=== PATIENT | male | born 1970 | race Caucasian/White ===

== ENCOUNTER 2024-06-26 11:05 | Outpatient (AMB) | payer OTHER, SELFPAY ==
--- NOTE | 2024-06-26 11:09 | MHC.PC.OV ---
Vital Signs 06/26/24 11:16 06/26/24 11:36 Height 5 ft 10 in Weight 244 lb 2 oz BMI 35.0 BP 133/82 128/80 Blood Pressure Location Rt brachial Lt brachial Position Sitting Sitting Respiration 16 Pulse 110 H 92 Pulse Source Pulse Oximeter Auscultation Temp 98.8 F Temp Source Oral Pulse Oximetry (%) 96 Oxygen Delivery Method Room Air Intake Visit Reasons: [employer] // PE Intake Note: patient here for new patient visit Manager Of Case Management Required: No Allergies No Known Allergies Allergy (Verified 06/26/24 11:29) Medication List - Last Reconciled 06/26/24 by Thor Lovett CNP chlorthalidone 25 mg PO QAM escitalopram oxalate mg PO DAILY trazodone mg PO BEDTIME Tobacco use date assessed: 06/26/24 Dental Screening Dental Screen Date: 06/26/24 Did you have a dental visit in the last 12 months?: Yes Did you have a dental problem in the last 6 months where you did not have access to dental care?: No Was dental information given to patient?: Patient has dentist HPI HPI Comments History of Present Illness Details 53-year-old male presents to establish care Prior PCP? - [facility], [place], [place] Last office visit/CPE/labs - 2 years ago Acute issue(s) - Sleep Apnea: He has not used his CPAP in over a year and believes his CPAP is now updated and therefore needs a new one. He has not had sleep studies in over 5 years. - HTN: On chlorthalidone 25 mg daily. - Anxiety and depression: On escitalopram 10 mg daily. Controlled symptoms. Not followed by a therapist or psychiatrist - Insomnia: On trazodone 100 mg at bedtime. Past Medical History - Hypertension - Depression - Anxiety - Insomnia - Sleep apnea Surgical History - Umbilical hernia repair - Tonsillectomy bilaterall - Uvulectomy Family History - Dad: Alcohol abuse, cardiovascular disease, hyperlipidemia - Mom: Alcohol abuse, cardiovascular disease, hypertension, hyperlipidemia, mental illness - MGM: Cardiovascular disease - PGF: Alcohol abuse Social History - Nonsmoker. Does not vape. Drinks 1-2 whisky 3-4 days weekly. Smoke 1/2 joint cannabis 3-4 times nightly - Has been making healthy dietary choices. Walks twice weekly. He has difficulty falling asleep or maintaining sleep; however, he generally sleeps well on trazadone Health maintenance - Last eye exam was 2 years ago. Referred to ophthalmology for routine eye care - Last dental visit was about a month ago. Encouraged to get dental care every 6-12 months - Last tetanus vaccine was within the last 5 years. Will obtain and review his record and updated as needed - Received 1 of 2 shingles vaccine last month. Encouraged to get second shingles vaccine. He may get the vaccine from the local pharmacy - He has not been vaccinated for pneumonia. Pneumonia vaccine recommended. He may get the vaccine from the local pharmacy - Up-to-date on the flu vaccine - He has never had a colonoscopy. He had Cologuard test 3 years ago: normal. Referred to [facility] gastroenterology for a colonoscopy [facility] Medical History (Updated 06/26/24 @ 12:11 by Thor Lovett CNP) Depression High blood pressure Surgical History (Updated 06/27/24 @ 15:29 by Thor Lovett CNP) History of umbilical hernia repair History of tonsillectomy History of uvulectomy Family History (Updated 06/26/24 @ 11:28 by Milla Pritchard) Brother Alcohol abuse Diabetes Colorectal cancer FH: mental illness Mother FH: mental illness High blood pressure High cholesterol Cardiovascular disease Alcohol abuse Father High cholesterol Cardiovascular disease Alcohol abuse Maternal Grandmother Cardiovascular disease Paternal Aunt No problems noted. 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 1. Little interest or pleasure in doing things: several days 2. Feeling down, depressed, or hopeless: not at all 3. Trouble falling or staying asleep, or sleeping too much: more than half the days 4. Feeling tired or having little energy: more than half the days 5. Poor appetite or overeating: several days 6. Feeling bad about yourself - or that you are a failure or have let yourself or your family down: not at all 7. Trouble concentrating on things, such as reading the newspaper or watching television: several days 8. Moving or speaking so slowly that other people could have noticed. Or the opposite - being so fidgety or restless that you have been moving around a lot more than usual: not at all 9. Thoughts that you would be better off or of hurting yourself in some way: not at all Total score: 7 Depression Screening Interpretation: Positive Depression Screening Follow-up: Existing condition and In treatment Depression Screening Done: Yes [id number] - PHQ-9 Billing: Yes Source: Developed by Drs. Maximiliano Rivera, Anne Omalley, Freddie Broussard and colleagues, with an educational jocelin from [employer]. Thrive Questionnaire Date Thrive assessed: 06/26/24 I am a: Patient What is your living situation today?: I have a steady place to live Within the past 12 months, did the food you bought not last and you didn't have the money to get more?: Never true Within the past 12 months, did you worry whether your food would run out before you got money to buy more?: Never true Do you have trouble paying for medicines?: No Do you have trouble getting transportation to medical appointments?: No Do you have trouble paying your heating and electricity bill?: No Do you have trouble taking care of your child, family member or friend?: No Do you have trouble with day-to-day activities such as bathing, preparing meals, shopping, managing finances, etc.?: No Are you currently unemployed and looking for a job?: No Are you interested in more education?: Yes Please select the resources that you would like help with: None Currently or been in a relationship where the following occur: No concerns reported THRIVE Score: 0 AUDIT C Alcohol Use Questionnaire (AUDIT-C) 1. How often do you have a drink containing alcohol?: 2-3 times a week 2. How many drinks containing alcohol do you have on a typical day when you are drinking?: 1 or 2 3. How often do you have six or more drinks on one occasion?: Never Total Score: 3 Score Reviewed/Action Taken: Yes KATERYNA-7 AMB Questionnaire KATERYNA-7 Date KATERYNA - 7 assessed: 06/26/24 Feeling nervous, anxious, or on edge: 1 = Several days Not being able to stop or control worryin = Not at all Worrying too much about different things: 1 = Several days Trouble relaxin = Not at all Being so restless that it is hard to sit still: 1 = Several days Becoming easily annoyed or irritable: 1 = Several days Feeling afraid as if something awful might happen: 0 = Not at all Total KATERYNA-7 score (0-4 normal; 5-9 mild; 10-14 moderate; 15-21 severe): 4 Source: Developed by Drs. Maximiliano Rivera, Anne Omalley, Freddie Broussard and colleagues, with an educational jocelin from [employer]. KATERYNA-7 Assessment Billing KATERYNA-7 Assessment Tool: KATERYNA-7 Assessment 67414 Review of Systems Const Details: Denies chills, Denies fatigue, Denies fever(s), Denies headache(s) and Denies weakness HEENT Denies change in vision, Denies dizziness, Denies headache(s), Denies hearing loss, Denies nasal congestion, Denies sinus pain, Denies sinus pressure and Denies sore throat Card Denies chest pain, Denies lightheadedness, Denies dyspnea and Denies other (palpitations) Resp Denies cough, Denies dyspnea and Denies wheezing GI Denies abdominal pain, Denies melena, Denies hematochezia, Denies change in bowel habits, Denies dyspepsia and Denies nausea Denies hematuria and Denies dysuria Musc Denies abnormal gait, Denies myalgias, Denies arthralgias, Denies numbness and Denies tingling Skin/Breast Denies rash, Denies unusual bruising and Denies wounds Neuro Denies abnormal gait, Denies dizziness, Denies headache(s), Denies memory loss, Denies numbness, Denies Sensory deficit (Neuro), Denies tingling and Denies weakness Psych Denies anxiety, Denies depression and Denies memory loss Endo Denies cold intolerance, Denies fatigue, Denies heat intolerance, Denies polydipsia and Denies polyuria Nathanael/Lymph Denies easy bleeding and Denies easy bruising Aller/Immun Denies wheezing Physical exam (Primary Care) Vital Signs: Last Vital Signs Temp 98.8 F 06/26/24 11:16 Pulse 92 06/26/24 11:36 Resp 16 06/26/24 11:16 BP 128/80 06/26/24 11:36 Pulse Ox 96 06/26/24 11:16 Oxygen Delivery Method Room Air 06/26/24 11:16 BMI result Body Mass Index 35.0 Tobacco/Smoking Status: Tobacco use Status Tobacco use date assessed 06/26/24 06/26/24 11:16 Patient Tobacco Use Status Never used Tobacco 06/26/24 11:21 e-Cigarette/Vaping Use Never Used 06/26/24 11:21 PHQ-9: PHQ-9 Score PHQ-9: Total score 7 06/27/24 15:19 Depression Screening Interpretation: Positive Depression Screening Follow-up: Existing condition and In treatment Thrive Assessment: Date of Thrive Assessment Date Thrive assessed 06/26/24 06/26/24 11:12 Currently or been in a relationship where the following occur: No concerns reported Const Other: General: no acute distress, well developed, alert and awake Nutritional Appearance: well nourished Orientation/consciousness: patient oriented x3 HENMT Head: Yes normocephalic and Yes atraumatic Ears: hearing grossly normal bilaterally and TM's normal bilaterally General nose exam: Normal external nose present and Normal nares present Mouth: Normal oral and palatal mucosa present and moist mucous membranes Teeth and gingiva: dentition normal Throat: Yes oropharynx normal (tonsillectomy, uvulectomy) Eyes Pupils: Equal, round and reactive pupils present and Pupil accommodation reflex normal EOM: EOMs intact bilaterally Neck Neck: Yes normal visual inspection, Yes no lymphadenopathy and Yes trachea midline Thyroid: Thyroid normal Carotids: no bruits Lymphatic: no lymphadenopathy noted Chest Chest palpation & inspection: normal inspection of the chest Resp Effort & Inspection: normal respiratory effort Auscultation: clear to auscultation bilaterally Cardio Rate: regular rate Rhythm: regular rhythm Heart sounds: S1 normal heart sound present, S2 normal heart sound present, no gallops, no murmurs and no rubs Bruits: no abdominal aortic bruits and no carotid bruits GI Palpation (GI): No Abdominal aortic bruit present, Soft to palpation, nontender, No hepatosplenomegaly present and No Rebound tenderness present Auscultation: normal bowel sounds General: Yes no CVA tenderness Back/Spine/Pelvis Back: no CVA tenderness Cervical Spine: cervical ROM normal and No Cervical spine tenderness Thoracic/Lumbar Spine: thoraco-lumbar ROM normal, No pain with thoraco-lumbar ROM, No thoracic spinal tenderness and No lumbar spinal tenderness Skin General: warm and dry. Normal skin color. Normal skin turgor Lesions: no lesions Rashes: no rashes Trauma: no lacerations or abrasions Wounds: no wounds Nails: normal Neuro General: patient oriented x3, gait normal and CN's II-XI intact bilaterally Cranial nerves: Yes Equal, round and reactive pupils present Cognition (Neuro): normal cognition Gait exam (Neuro): Normal gait present Motor exam (neuro): 5/5 motor strength present throughout Sensory Exam: No Sensory deficit (Neuro) Deep tendon reflexes (DTR's): Right patellar reflex intensity grade: 2+ and Left patellar reflex intensity grade: 2+ Extrem General: Yes normal to inspection, No edema and No calf tenderness Psych Appearance: grossly normal Affect: normal affect Attitude: cooperative Thought process: Normal thought process present Coding Level of Care Code New Pt Level 3 (37919) New Pt Prev Care 40-64y(73646) Diagnoses Normal physical examination, routine Z00.00 High blood pressure I10 Anxiety and depression F41.9; F32.A Colon cancer screening Z12.11 Screening PSA (prostate specific antigen) Z12.5 Eye exam, routine Z01.00 Morbid obesity with BMI of 40.0-44.9, adult E66.01; Z68.41 Sleep apnea G47.30 Insomnia G47.00 Laboratory tests ordered as part of a complete physical exam (CPE) Z00.00 Additional Codes KATERYNA-7 Assessment Billing - KATERYNA-7 Assessment Tool: KATERYNA-7 Assessment 57146 ([id number]) PHQ-9 - 05700 - PHQ-9 Billing: Yes ([id number]) Assessment & Plan Assessment & Plan (1) Normal physical examination, routine: Code(s): Z00.00 - Encounter for general adult medical examination without abnormal findings Category: Medical Plan: No significant functional limitation noted. Continue current treatment management. Perform lab work and follow-up for telehealth visit in 2-3 weeks for labs review. Return sooner with symptoms or concerns. Verbalized understanding and agreed with treatment plan. (2) High blood pressure: Code(s): I10 - Essential (primary) hypertension Category: Medical Plan: Resting blood pressure is 128/80, controlled. Continue to take chlorthalidone as prescribed. Low-sodium diet encouraged. Will continue to monitor. Verbalized understanding and agreed with treatment plan. (3) Anxiety and depression: Code(s): F41.9 - Anxiety disorder, unspecified; F32.A - Depression, unspecified Category: Medical Plan: Controlled anxiety and depressive symptoms. Continue to take escitalopram as prescribed. Routine exercise encouraged. Follow-up with worsening or new symptoms. Verbalized understanding and agreed with treatment plan. (4) Colon cancer screening: Code(s): Z12.11 - Encounter for screening for malignant neoplasm of colon Category: Medical Plan: He has never had a colonoscopy. He had Cologuard test 3 years ago: normal. Referred to [facility] gastroenterology for a colonoscopy. (5) Screening PSA (prostate specific antigen): Code(s): Z12.5 - Encounter for screening for malignant neoplasm of prostate Category: Medical Plan: PSA lab ordered. (6) Eye exam, routine: Code(s): Z01.00 - Encounter for examination of eyes and vision without abnormal findings Category: Medical Plan: Last eye exam was 2 years ago. Referred to ophthalmology for routine eye care. (7) Morbid obesity with BMI of 40.0-44.9, adult: Code(s): E66.01 - Morbid (severe) obesity due to excess calories; Z68.41 - Body mass index [BMI] 40.0-44.9, adult Category: Medical Plan: He currently weighs 294 lb, BMI is 42.2. He has been making healthy dietary choices and exercising routinely which I encouraged. Declines referral to a marine radio installer and servicer or weight management clinic and notes that he will continue with healthy lifestyle changes. Healthy diet and routine exercise encouraged. Follow-up as needed. Verbalized understanding and agreed with treatment plan. (8) Sleep apnea: Code(s): G47.30 - Sleep apnea, unspecified Category: Medical Plan: Sleep apnea on CPAP. He has not used his CPAP in over a year and believes his CPAP is now updated and therefore needs a new one. He has not had sleep studies in over 5 years. Referred to sleep medicine for sleep studies and CPAP follow-up. (9) Insomnia: Code(s): G47.00 - Insomnia, unspecified Category: Medical Plan: He has difficulty falling asleep or maintaining sleep; however, he generally sleeps well on trazadone. Continue to take trazodone as prescribed. Routine exercise encouraged. Referred to sleep medicine for sleep study and CPAP follow-up. (10) Laboratory tests ordered as part of a complete physical exam (CPE): Code(s): Z00.00 - Encounter for general adult medical examination without abnormal findings Category: Medical Plan: Fasting labs ordered as part of a complete physical exam. Advised to fast for at least 10 hours before getting labs drawn. May drink water Verbalized understanding and agreed with treatment plan. Orders: Orders Complete Blood Count Auto Diff 06/26/24 Z00.00 - Encounter for general adult medical examination without abnormal findings Vitamin D 25-OH Total 06/26/24 Z00.00 - Encounter for general adult medical examination without abnormal findings PSA, Ultra Sensitive 06/26/24 Z12.5 - Encounter for screening for malignant neoplasm of prostate Comprehensive [place]. Panel Fast 06/26/24 Z00.00 - Encounter for general adult medical examination without abnormal findings Lipid Panel 06/26/24 Z00.00 - Encounter for general adult medical examination without abnormal findings TSH reflex Free T4 06/26/24 Z00.00 - Encounter for general adult medical examination without abnormal findings UA CC w/rflx Micro + Cult 06/26/24 Z00.00 - Encounter for general adult medical examination without abnormal findings Microalbumin, Random (w Creat) 06/26/24 Z00.00 - Encounter for general adult medical examination without abnormal findings Referrals Sleep Medicine Referral G47.30 - Sleep apnea, unspecified Ophthalmology Referral Z01.00 - Encounter for examination of eyes and vision without abnormal findings Gastroenterology Referral Z12.11 - Encounter for screening for malignant neoplasm of colon
[2024-06-26 11:16] VITALS: BP 133/82; PULSE 110; RESP 16; TEMP 37.1; O2SAT 96; BMI 35.0
[2024-06-26 11:36] VITALS: BP 128/80; PULSE 92
== END 2024-06-26 12:03 | disposition home or self-care (01) ==
PROVIDERS: PCP Nurse Practitioner Family; Visit Provider Nurse Practitioner Family
DX: Z00.00 Encounter for general adult medical examination without abnormal findings (principal); I10 Essential (primary) hypertension; E66.01 Morbid (severe) obesity due to excess calories; Z68.41 Body mass index [BMI] 40.0-44.9, adult; F41.9 Anxiety disorder, unspecified; F32.A Depression, unspecified; Z12.11 Encounter for screening for malignant neoplasm of colon; Z12.5 Encounter for screening for malignant neoplasm of prostate; G47.30 Sleep apnea, unspecified; G47.00 Insomnia, unspecified

== ENCOUNTER → 2024-06-26 11:05 | Outpatient (BNVA) | payer OTHER, SELFPAY | PROVIDERS: PCP Nurse Practitioner Family; Visit Provider Nurse Practitioner Family | DX: Z00.00 Encounter for general adult medical examination without abnormal findings (principal); I10 Essential (primary) hypertension; F41.9 Anxiety disorder, unspecified; F32.A Depression, unspecified; E66.01 Morbid (severe) obesity due to excess calories; Z68.41 Body mass index [BMI] 40.0-44.9, adult; G47.30 Sleep apnea, unspecified; G47.00 Insomnia, unspecified; Z79.899 Other long term (current) drug therapy; Z99.89 Dependence on other enabling machines and devices | CPT/HCPCS: 96127 ==

== ENCOUNTER 2024-07-09 07:23 | Outpatient (REF) | payer OTHER, SELFPAY ==
[2024-07-09 07:36] LABS: MANUAL DIFF FLAG NO
[2024-07-09 08:02] LABS: Basophils Absolute Auto 0.1 X10*3/uL (0.0-0.2); Basophils Percent Auto 0.7 % (0-2); Eosinophils Absolute Auto 0.1 X10*3/uL (0.0-0.4); Eosinophils Percent Auto 1.6 % (0-4); Hematocrit 50.7 % (42.0-52.0); Hemoglobin 17.9 g/dl (14.0-18.0); Imm Gran Abs Auto 0.02 X10*3/uL (0.00-0.03); Imm Gran Pct Auto 0.3 % (0.0-0.4); Lymphocytes Absolute Auto 1.7 X10*3/uL (1.2-4.9); Lymphocytes Percent Auto 22.6 % (20-40); Mean Corpuscular HGB Conc 35.3 g/dl (31.0-36.0); Mean Corpuscular Hemoglobin 32.3 pg (27.0-33.0); Mean Corpuscular Volume 91.4 fL (80.0-98.0); Mean Platelet Volume 9.7 fL (9.4-12.4); Monocytes Absolute Auto 0.8 X10*3/uL (0.1-1.2); Monocytes Percent Auto 10.8 % (2-11); Neutrophils Absolute Auto 4.8 x10*3/uL (2.0-8.3); Platelet Count 197 X10*3/uL (160-400); Red Blood Count 5.55 X10*6/uL (4.60-5.80); Red Cell Distribution Width 11.7 % (11.0-16.0); White Blood Count 7.5 X10*3/uL (4.8-10.8)
[2024-07-09 08:18] LABS: Alanine Aminotransferase 35 U/L (0-40); Albumin Level 4.2 g/dL (3.5-5.0); Alkaline Phosphatase 73 U/L (39-117); Anion Gap 15 (12-20); Aspartate Amino Transferase 30 U/L (5-37); Bilirubin Total 0.8 mg/dL (0.0-1.0); Blood Urea Nitrogen 15 mg/dL (9-16); Calcium 9.5 mg/dL (8.4-10.2); Carbon Dioxide 29 mmol/L (22-29); Chloride 102 mmol/L (96-108); Cholesterol 193 mg/dL (<200); Estimated Glomerular Filt Rate > 60; Glucose Fasting 120 mg/dL (60-99); HDL Cholesterol 37 mg/dL (>40); LDL Cholesterol Calculated 90 mg/dL (<100); Potassium 3.7 mmol/L (3.3-5.1); Sodium 142 mmol/L (135-145); Triglycerides 331 mg/dL (<150)
[2024-07-09 08:42] LABS: TSH reflex Free T4 1.16 uIU/mL (0.32-4.0); Vitamin D 25-OH Total 33.4 ng/mL (>30)
[2024-07-09 08:45] LABS: Appearance Urine Clear; Color Urine Yellow; Glucose Urine UA Negative (Negative); Leukocyte Esterase Urine Negative (Negative); Nitrite Urine Negative (Negative); PH 6.5 (5.0-9.0); Urine Blood Negative (Negative); Urine Ketones Negative (Negative); Urine Protein Negative (Neg-Trace)
[2024-07-09 09:43] LABS: Microalbum/Creatinine Ratio Ur 22.1 ug/mg cr (<30)
[2024-07-13 16:58] LABS: PSA, Ultra Sensitive 2.64 ng/mL
== END 2024-07-09 07:24 | disposition home or self-care (01) ==
LOC: HO.LAB 07:23
PROVIDERS: PCP Nurse Practitioner Family; Visit Provider Nurse Practitioner Family
DX: Z00.00 Encounter for general adult medical examination without abnormal findings (principal); Z12.5 Encounter for screening for malignant neoplasm of prostate; Z13.6 Encounter for screening for cardiovascular disorders
CPT/HCPCS: 36415; 80053; 80061; 81003; 82043; 82306; 82570; 84153; 84443; 85025

== ENCOUNTER 2024-07-18 12:43 | Outpatient (AMB) | payer OTHER, SELFPAY ==
--- NOTE | 2024-07-18 12:39 | MHC.PC.OV ---
Intake Visit Reasons: Telehealth 2-3 wks labs review Intake Note: patient here for 2-3 follow up telehealth for lab review Group Therapist Required: No Allergies No Known Allergies Allergy (Verified 07/18/24 12:39) Tobacco use date assessed: 07/18/24 Dental Screening Dental Screen Date: 06/26/24 Did you have a dental visit in the last 12 months?: Yes Did you have a dental problem in the last 6 months where you did not have access to dental care?: No Was dental information given to patient?: Patient has dentist HPI HPI Comments History of Present Illness Details 53-year-old male presents for telehealth visit for review of recent lab results. He admits to taking his medications as prescribed without adverse reactions. He offers no complaints and denies acute symptoms at this time. [facility] Medical History (Updated 07/18/24 @ 13:28 by Thor Lovett CNP) Depression High blood pressure Surgical History (Updated 06/27/24 @ 15:29 by Thor Lovett CNP) History of umbilical hernia repair History of tonsillectomy History of uvulectomy Family History (Updated 06/26/24 @ 11:28 by Milla Pritchard [place]) Brother Alcohol abuse Diabetes Colorectal cancer FH: mental illness Mother FH: mental illness High blood pressure High cholesterol Cardiovascular disease Alcohol abuse Father High cholesterol Cardiovascular disease Alcohol abuse Maternal Grandmother Cardiovascular disease Paternal Aunt No problems noted. 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 Current occupational exposures/hazards: No Cognitive needs: No Hearing needs: No Vision needs: Yes Questionnaire Thrive Questionnaire Date Thrive assessed: 06/26/24 I am a: Patient What is your living situation today?: I have a steady place to live Within the past 12 months, did the food you bought not last and you didn't have the money to get more?: Never true Within the past 12 months, did you worry whether your food would run out before you got money to buy more?: Never true Do you have trouble paying for medicines?: No Do you have trouble getting transportation to medical appointments?: No Do you have trouble paying your heating and electricity bill?: No Do you have trouble taking care of your child, family member or friend?: No Do you have trouble with day-to-day activities such as bathing, preparing meals, shopping, managing finances, etc.?: No Are you currently unemployed and looking for a job?: No Are you interested in more education?: Yes Please select the resources that you would like help with: None Currently or been in a relationship where the following occur: No concerns reported THRIVE Score: 0 KATERYNA-7 AMB Questionnaire KATERYNA-7 Date KATERYNA - 7 assessed: 06/26/24 Source: Developed by Drs. Maximiliano Rivera, Anne Omalley, Freddie Broussard and colleagues, with an educational jocelin from [email or web address]. Review of Systems Const Details: Denies chills, Denies fatigue, Denies fever(s), Denies headache(s) and Denies weakness Cardiac Denies chest pain, Denies claudication, Denies leg edema, Denies lightheadedness, Denies palpitations, Denies dyspnea, Denies dyspnea on exertion, Denies orthopnea and Denies other (Loss of consciousness) Resp Denies cough, Denies excessive phlegm production, Denies dyspnea, Denies dyspnea on exertion, Denies snoring and Denies wheezing Physical exam (Primary Care) Tobacco/Smoking Status: Tobacco use Status Tobacco use date assessed 07/18/24 07/18/24 12:42 Patient Tobacco Use Status Never used Tobacco 07/18/24 12:42 e-Cigarette/Vaping Use Never Used 07/18/24 12:42 Thrive Assessment: Date of Thrive Assessment Date Thrive assessed 06/26/24 07/18/24 12:42 Currently or been in a relationship where the following occur: No concerns reported Const Other: Patient is alert oriented x3. Telehealth Telehealth Telehealth Platform: Telephone Location of provider rendering services: practice address Location of patient: address on file Patient Identification confirmed using: Name, : Yes Telehealth method: voice only Patient verbally consented to treatment: Yes Patient verbally consented to billing insurance company: Yes Patient informed of any privacy concerns related to visit: Yes Coding Level of Care Code Tele Est Pt Level 3 (72675) Diagnoses Elevated fasting glucose R73.01 Dyslipidemia E78.5 Time Spent (min) 15 Assessment & Plan Assessment & Plan (1) Elevated fasting glucose: Code(s): R73.01 - Impaired fasting glucose Category: Medical Plan: Recent fasting glucose is elevated, 120. Will recheck fasting glucose and make changes as needed. Follow-up for telehealth visit in 2 weeks. Verbalized understanding and agreed with treatment plan. (2) Dyslipidemia: Code(s): E78.5 - Hyperlipidemia, unspecified Category: Medical Plan: Recent triglycerides level is elevated, 331, HDL level is slightly low, 37. Advised to limit foods high in saturated fat and avoid foods high in trans fat. Routine exercise encouraged. Will recheck lipid panel levels in 2 months. Verbalized understanding and agreed with treatment plan. Orders: Orders Glucose Fasting Today R73.01 - Impaired fasting glucose
== END 2024-07-18 16:31 | disposition home or self-care (01) ==
LOC: HO.HMCFM 12:43
PROVIDERS: PCP Nurse Practitioner Family; Visit Provider Nurse Practitioner Family
DX: R73.01 Impaired fasting glucose (principal); E78.5 Hyperlipidemia, unspecified

== ENCOUNTER 2024-07-25 08:10 | Outpatient (AMB) | payer OTHER, SELFPAY ==
--- NOTE | 2024-07-25 08:15 | AM.OFFWIN_ITS ---
Intake Vital Signs 07/25/24 08:18 Height 5 ft 10 in Weight 250 lb BMI 35.9 BP 110/74 Blood Pressure Location Lt brachial Position Sitting Respiration 16 Pulse 65 Pulse Source Pulse Oximeter Pulse Oximetry (%) 96 Oxygen Delivery Method Room Air Intake Visit Reasons: Left big toe inflamed Intake Note: Left toe inflammation Patient Tobacco Use Status: Never used Tobacco Allergies No Known Allergies Allergy (Verified 07/25/24 08:41) Medication List - Last Reconciled 07/25/24 by Thor Lovett CNP chlorthalidone 25 mg PO QAM escitalopram oxalate mg PO DAILY trazodone mg PO BEDTIME HPI HPI Comments History of Present Illness Details 54-year-old male presents with complaint s of pain, swelling, and redness to his right great toe which has been ongoing for the past 4 days. His symptoms have progressively worsened. He notes history of gout and history of taking prednisone and indomethacin. He has not drank alcohol for the past 7 days. He denies constitutional symptoms. [facility] Medical History (Updated 07/25/24 @ 08:45 by Thor Lovett CNP) Depression High blood pressure Surgical History (Updated 06/27/24 @ 15:29 by Thor Lovett CNP) History of umbilical hernia repair History of tonsillectomy History of uvulectomy Family History (Updated 06/26/24 @ 11:28 by Milla Pritchard MA) Brother Alcohol abuse Diabetes Colorectal cancer FH: mental illness Mother FH: mental illness High blood pressure High cholesterol Cardiovascular disease Alcohol abuse Father High cholesterol Cardiovascular disease Alcohol abuse Maternal Grandmother Cardiovascular disease Paternal Aunt No problems noted. 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 Current occupational exposures/hazards: No Cognitive needs: No Hearing needs: No Vision needs: Yes Review of Systems Const Details: Denies chills, Denies fatigue, Denies fever(s), Denies headache(s) and Denies weakness Cardiac Denies chest pain, Denies claudication, Denies leg edema, Denies lightheadedness, Denies palpitations, Denies dyspnea, Denies dyspnea on exertion, Denies orthopnea and Denies other (Loss of consciousness) Resp Denies cough, Denies excessive phlegm production, Denies dyspnea, Denies dyspnea on exertion, Denies snoring and Denies wheezing Musc Reports as per HPI Physical Exam Vital Signs: Last Vital Signs Pulse 65 07/25/24 08:18 Resp 16 07/25/24 08:18 BP 110/74 07/25/24 08:18 Pulse Ox 96 07/25/24 08:18 Oxygen Delivery Method Room Air 07/25/24 08:18 BMI result Body Mass Index 35.9 Const Other: General: comfortable and no acute distress Orientation/consciousness: patient oriented x3 Chest Chest palpation & inspection: normal inspection of the chest Resp Auscultation: clear to auscultation bilaterally Cardiac Palpation: normal PMI Heart sounds: S1 normal heart sound present, S2 normal heart sound present, no gallops, no murmur, no rubs Musc Moderate erythema and edema of the MTP of the right great 2, medially. Skin is warm. Normal ROM and CML Assessment & Plan Assessment & Plan (1) Pain of right great toe: Code(s): M79.674 - Pain in right toe(s) Plan: Bonny presents with pain, swelling, and redness to his right great toe which has been ongoing for the past 4 days and progressively worsened. Moderate erythema and edema of the MTP of the right great 2, medially. Skin is warm. Normal ROM and CML. Likely gout. He has history of gout. Will check uric acid level. Indomethacin 50 mg 3 times daily ordered; advised to take as prescribed. Instructed on the risks, benefits, and potential adverse reactions of the medication. Adequate hydration and cool compresses encouraged. Instructed on dietary modifications to prevent uric acid buildup. Follow-up with worsening or new symptoms. Verbalized understanding and agreed with treatment plan. Orders: Orders Uric Acid Today M79.674 - Pain in right toe(s) Medications: New indomethacin administer with food or milk 50 mg PO TID 7 days 21 caps 0RF Coding Level of Care Code Est Pt Level 3 (09290) Diagnoses Pain of right great toe M79.674
[2024-07-25 08:18] VITALS: BP 110/74; PULSE 65; RESP 16; O2SAT 96; BMI 35.9
== END 2024-07-25 08:48 | disposition home or self-care (01) ==
PROVIDERS: PCP Nurse Practitioner Family; Visit Provider Nurse Practitioner Family
DX: M79.674 Pain in right toe(s) (principal)

== ENCOUNTER → 2024-07-25 08:10 | Outpatient (BNVA) | payer OTHER, SELFPAY | PROVIDERS: PCP Nurse Practitioner Family ==

== ENCOUNTER 2024-07-25 08:51 | Outpatient (REF) | payer OTHER, SELFPAY | END 2024-07-25 08:52 | disposition home or self-care (01) | LOC: HO.WFDLDS 08:51 | PROVIDERS: Visit Provider Nurse Practitioner Family | DX: M79.674 Pain in right toe(s) (principal) | CPT/HCPCS: 36415; 84550 ==

== ENCOUNTER 2024-08-01 14:52 | Outpatient (AMB) | payer OTHER, SELFPAY ==
--- NOTE | 2024-08-01 14:54 | MHC.OFFVIS ---
Vital Signs 08/01/24 14:58 Height 5 ft 10 in Weight 249 lb BMI 35.7 BP 140/80 H Blood Pressure Location Lt brachial Position Sitting Pulse 94 Pulse Oximetry (%) 96 Oxygen Delivery Method Room Air Intake Visit Reasons: 07/04LVM+Let INP-CLAUDIA Intake Note: Internal referral for CLAUDIA unspecified. Retail Customer Service Specialist Required: No Accompanied by: Self / Same As Patient Allergies No Known Allergies Allergy (Verified 08/01/24 15:01) HPI Comments Details: 54 year old r. handed male referred to us by his PCP. CLAUDIA on CPAP for 10 years does not use the machine dx at [facility] >10 years ago. 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 He lost 15-20lbs, snores, and his mouth is gets very dry, he denies bruxism. He was seen by ENT for a deviated septum, and had Adenoidectomy >30 years ago. He is a pretty relaxed person, however his mood tends to be irritable when responsibilities at job escalate he feels more anxious. 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 He is limiting salt and sugar in his diet and making some lifestyle changes. RLS L> R creepy crawly feeling, denies numbness, tingling and burning. calves and quads. He sees a chiropractor for LBP, denies injury. He c/o cognitive decline and stm deficits especially at work with math, he forgets numbers, transposing numbers and spacing out. He does have a brother with epilepsy and grandmal seizures since the age of 6. He had 2 episodes of gout this year treated with Indomethacin. He does not drink alcohol, smoke or do MJ. [facility] Medical History Depression High blood pressure Surgical History History of umbilical hernia repair History of tonsillectomy History of uvulectomy Family History Brother Alcohol abuse Diabetes Colorectal cancer FH: mental illness Mother FH: mental illness High blood pressure High cholesterol Cardiovascular disease Alcohol abuse Father High cholesterol Cardiovascular disease Alcohol abuse Maternal Grandmother Cardiovascular disease Paternal Aunt No problems noted. 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 Current occupational exposures/hazards: No Cognitive needs: No Hearing needs: No Vision needs: Yes Review of Systems Const All systems reviewed & are unremarkable except as noted in HPI and below Physical Exam Vital Signs: Last Vital Signs Pulse 94 08/01/24 14:58 BP 140/80 H 08/01/24 14:58 Pulse Ox 96 08/01/24 14:58 Oxygen Delivery Method Room Air 08/01/24 14:58 BMI result Body Mass Index 35.7 Const General: cooperative, comfortable and no acute distress Nutritional Appearance: obese (BMI is 35.7) and overweight Orientation/consciousness: patient oriented x3 HEENT Face and sinus: Yes normal facial exam and Yes face symmetric Teeth and gingiva: other (Mallampti score of 4) Eyes Pupils: Equal, round and reactive pupils present Neck Neck: Yes full ROM and Yes supple Resp Effort & Inspection: normal respiratory effort and able to speak in complete sentences Neuro General: patient oriented x3 and moves all extremities Cranial nerves: Yes Facial sensation intact/muscles of mastication intact, Yes Equal, round and reactive pupils present, Yes Normal accommodation reflex present, Yes Bilaterally intact EOM present, Yes Normal facial strength present, Yes Midline tongue present, Yes Ability to bilaterally rotate head present and Yes Ability to bilaterally elevate shoulders present Gait exam (Neuro): Normal gait present Motor exam (neuro): 5/5 motor strength present throughout and Normal motor muscle tone present throughout Deep tendon reflexes (DTR's): Right triceps reflex intensity grade: 2+, Left triceps reflex intensity grade: 2+, Rt Biceps (C5, C6): 2+, Left biceps reflex intensity grade: 2+, Right brachioradialis reflex intensity grade: 2+, Left brachioradialis reflex intensity grade: 2+, Right patellar reflex intensity grade: 2+ and Left patellar reflex intensity grade: 2+ Results Reviewed Results Reviewed: Labs per PCP. Assessment & Plan Assessment & Plan (1) Morbid obesity with BMI of 40.0-44.9, adult: Code(s): E66.01 - Morbid (severe) obesity due to excess calories; Z68.41 - Body mass index [BMI] 40.0-44.9, adult Category: Medical (2) Sleep apnea: Code(s): G47.30 - Sleep apnea, unspecified Category: Medical Qualifiers: Sleep apnea type: unspecified type Qualified Code(s): G47.30 - Sleep apnea, unspecified (3) Insomnia: Code(s): G47.00 - Insomnia, unspecified Category: Medical Qualifiers: Insomnia type: unspecified Qualified Code(s): G47.00 - Insomnia, unspecified (4) Forgetfulness: Code(s): R68.89 - Other general symptoms and signs Category: Medical Plan HST will evaluate for sleep apnea. Labs for fatigue. B12/ Homocysteine / Folate/ Iron Panel Ferritin RLS will monitor Cognitive Decline? Forgetful and transposing numbers / will monitor Orders: Orders RT home sleep study Today G47.19 - Other hypersomnia Ferritin Today E66.01 - Morbid (severe) obesity due to excess calories, G47.00 - Insomnia, unspecified, G47.30 - Sleep apnea, unspecified, Z68.41 - Body mass index [BMI] 40.0-44.9, adult Hemoglobin A1c Today G47.30 - Sleep apnea, unspecified, R68.89 - Other general symptoms and signs Methylmalonic Acid Today G47.9 - Sleep disorder, unspecified, R53.83 - Other fatigue Vitamin B12 and Folate Today R68.89 - Other general symptoms and signs Homocysteine Today G47.9 - Sleep disorder, unspecified, R53.83 - Other fatigue IRON PROFILE Today G47.9 - Sleep disorder, unspecified, R53.83 - Other fatigue Patient Instructions: Sleep Hygiene provided: set a scheduled bedtime and wake time to help regulate the circadian rhythm and balance the release of pituitary hormones. Sleep in a dark room, temperatures below 68 degrees, and no devices n bed. Limit caffeinated products 6 hours prior to bed, and limit fluids 2-4 hours prior to bed. Gentle night yoga, diffusing essential oils, and playing soft music can be relaxing. Knickerbocker 3 fatty acids for neuro-cardio protective health, implementation of mushrooms cordycep, lions tasneem, reishi, shitake, maitake into diet. Flax and delia with nuts for HDL support, salmon or fatty fishes. D- is baseline low- start taking a d- supplement 300- 600mg daily. Iron will evaluate with labs- for RLS/ PLMD. Coding Level of Care Code Est Pt Level 4 (25351) Diagnoses Morbid obesity with BMI of 40.0-44.9, adult E66.01; Z68.41 Sleep apnea, unspecified type G47.30 Sleep apnea type: unspecified type Insomnia, unspecified type G47.00 Insomnia type: unspecified Forgetfulness R68.89 Time Spent (min) 40 Comment Evaluation of Sleep apnea Sleep Questionnaire Difficulty falling asleep: No Difficulty staying asleep?: Yes Snoring: Yes Witnessed apneas: No Gasping arousals: No Nocturia: No GERD: No Vivid dreams: No Acting out dreams: No Abnormal behavior in sleep: No Abnormal movements in sleep: No Morning headaches: No Excessive daytime sleepiness: No Daytime naps: No Restless legs: Yes Hallucinations: No Sleep paralysis: No Drop attacks: No Sleep Study: Yes (>10 years ago) CPAP: Yes
[2024-08-01 14:58] VITALS: BP 140/80; PULSE 94; O2SAT 96; BMI 35.7
== END 2024-08-01 16:17 | disposition home or self-care (01) ==
LOC: HO.HSMS 14:53
PROVIDERS: PCP Nurse Practitioner Family; Visit Provider Physician Assistant Medical
DX: E66.01 Morbid (severe) obesity due to excess calories (principal); Z68.41 Body mass index [BMI] 40.0-44.9, adult; G47.30 Sleep apnea, unspecified; G47.00 Insomnia, unspecified; R68.89 Other general symptoms and signs
CPT/HCPCS: 99214

== ENCOUNTER → 2024-09-01 13:26 | Outpatient (BNVA) | payer OTHER, SELFPAY | PROVIDERS: PCP Nurse Practitioner Family; Visit Provider Nurse Practitioner Family | DX: Z13.89 Encounter for screening for other disorder (principal) ==

== ENCOUNTER → 2024-10-06 13:06 | Outpatient (REF) | payer OTHER, SELFPAY | LOC: HO.SL 13:06 | PROVIDERS: PCP Nurse Practitioner Family; Visit Provider Physician Assistant Medical | DX: G47.19 Other hypersomnia (principal); G47.30 Sleep apnea, unspecified | CPT/HCPCS: 95806 ==

== ENCOUNTER → 2024-10-06 13:41 | Outpatient (BNV) | payer OTHER, SELFPAY | PROVIDERS: PCP Nurse Practitioner Family; Visit Provider Psychiatry & Neurology Neurology | DX: G47.33 Obstructive sleep apnea (adult) (pediatric) (principal) | CPT/HCPCS: 95806 ==

== ENCOUNTER 2024-10-31 15:16 | Outpatient (AMB) | payer OTHER, SELFPAY ==
[2024-10-31 15:38] VITALS: BP 118/82; BMI 35.7
--- NOTE | 2024-10-31 15:38 | MHC.OFFVIS ---
Vital Signs 10/31/24 15:38 Height 5 ft 10 in Weight 249 lb BMI 35.7 BP 118/82 Blood Pressure Location Rt brachial Position Sitting Intake Visit Reasons: 3mon follow-up Intake Note: Patient presents follow up Sleep. No Labs, HST done 10/06. Allergies No Known Allergies Allergy (Verified 10/31/24 15:40) HPI Comments Details: 54 year old r. handed male referred to us by his PCP for evaluation of sleep apnea. HST - Will merchandise pickup/receiving associate his machine tomorrow FH + grandmother had a stoke, when she was 60 FH+ dementia mom pulmonary issues, CLAUDIA on cpap will merchandise pickup/receiving associate his machine this week. 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 He lost 15-20lbs, and still snores loudly, his mouth gets very dry, he denies bruxism. He was seen by ENT for a deviated septum, and had Adenoidectomy >30 years ago. He is a pretty relaxed person, however his mood tends to be irritable when responsibilities at job escalate he feels more anxious. 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 He is limiting salt and sugar in his diet and implementing lifestyle changes. RLS L> R creepy crawly feeling , denies numbness, tingling and burning up to the calves and quads. He c/o cognitive decline and stm deficits especially at work with math, he forgets numbers, transposing numbers and spacing out. He loses his train of thought easily. He had 2 episodes of gout this year both treated with Indomethacin. He does not drink alcohol, denies smoking or MJ use. [facility]END[facility] Medical History Depression High blood pressure Surgical History History of umbilical hernia repair History of tonsillectomy History of uvulectomy Family History Brother Alcohol abuse Diabetes Colorectal cancer FH: mental illness Mother FH: mental illness High blood pressure High cholesterol Cardiovascular disease Alcohol abuse Father High cholesterol Cardiovascular disease Alcohol abuse Maternal Grandmother Cardiovascular disease Paternal Aunt No problems noted. 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 Current occupational exposures/hazards: No Cognitive needs: No Hearing needs: No Vision needs: Yes Physical Exam Vital Signs: Last Vital Signs BP 118/82 10/31/24 15:38 BMI result Body Mass Index 35.7 Const General: cooperative, comfortable and no acute distress Nutritional Appearance: obese (BMI is 35.7) and overweight Orientation/consciousness: patient oriented x3 HEENT Face and sinus: Yes normal facial exam and Yes face symmetric Teeth and gingiva: other (Mallampti score of 4) Eyes Pupils: Equal, round and reactive pupils present Neck Neck: Yes full ROM and Yes supple Resp Effort & Inspection: normal respiratory effort and able to speak in complete sentences Neuro General: patient oriented x3 and moves all extremities Cranial nerves: Yes Facial sensation intact/muscles of mastication intact, Yes Equal, round and reactive pupils present, Yes Normal accommodation reflex present, Yes Normal facial strength present, Yes Midline tongue present, Yes Ability to bilaterally rotate head present and Yes Ability to bilaterally elevate shoulders present Gait exam (Neuro): Normal gait present Motor exam (neuro): 5/5 motor strength present throughout and Normal motor muscle tone present throughout Psych Appearance: grossly normal Speech and movement: Normal speech and movement present Thought content: Normal thought content present Results Reviewed Results Reviewed: 10/2024 HST claudia mild AHI is 8 and oxygen Nadirs to 76%. Assessment & Plan Assessment & Plan (1) Sleep apnea: Code(s): G47.30 - Sleep apnea, unspecified Category: Medical Qualifiers: Sleep apnea type: unspecified type Qualified Code(s): G47.30 - Sleep apnea, unspecified (2) RLS (restless legs syndrome): Code(s): G25.81 - Restless legs syndrome Category: Medical (3) Forgetfulness: Code(s): R68.89 - Other general symptoms and signs Category: Medical Plan 10/2024 HST c/w mild claudia AHI is 8 and oxygen Nadirs to 76%. Labs for fatigue are pending: B12/ Homocysteine / Folate/ Iron Panel, Ferritin, reviewed labs with him today HDL low, Uric acid elevated, hx of gout, fasting glucose is elevated. RLS will monitor magnilife topically. Start B12 daily 1000mg otc, magnesium citrate 400mg, B6 200mg and yoga with colt on youtube. Memory Cognitive Decline? Forgetful and transposing numbers / will monitor F/u in 3 months for compliance. Medications: New mecobalamin (vitamin B12) place tablet under tongue and allow to dissolve for at least30 secs before swallowing 1,000 mcg sublingual BEDTIME 30 tabs 0RF restless legs MDD 1000mcg G25.81 - Restless legs syndrome Patient Instructions: Sleep Hygiene provided: set a scheduled bedtime and wake time to help regulate the circadian rhythm and balance the release of pituitary hormones. Sleep in a dark room, temperatures below 68 degrees, and no devices n bed. Limit caffeinated products 6 hours prior to bed, and limit fluids 2-4 hours prior to bed. Gentle night yoga, diffusing essential oils, and playing soft music can be relaxing. Coding Level of Care Code Est Pt Level 4 (33285) Diagnoses Sleep apnea, unspecified type G47.30 Sleep apnea type: unspecified type RLS (restless legs syndrome) G25.81 Forgetfulness R68.89 Time Spent (min) 25 Comment Improving
== END 2024-10-31 16:30 | disposition home or self-care (01) ==
LOC: HO.HSMS 15:17
PROVIDERS: PCP Nurse Practitioner Family; Visit Provider Physician Assistant Medical
DX: G47.30 Sleep apnea, unspecified (principal); G25.81 Restless legs syndrome; R68.89 Other general symptoms and signs
CPT/HCPCS: 99214

== ENCOUNTER 2024-11-17 15:33 | Outpatient (AMB) | payer OTHER, SELFPAY ==
--- NOTE | 2024-11-17 15:34 | MHC.OFFVIS ---
Vital Signs 11/17/24 15:36 Height 5 ft 10 in Weight 243 lb BMI 34.9 BP 107/61 Blood Pressure Location Lt brachial Position Sitting Pulse 61 Pulse Oximetry (%) 95 Oxygen Delivery Method Room Air Intake Visit Reasons: Colonoscopy Screening Intake Note: Patient new consult for 1st pre colonoscopy screening. Patient cc: this morning was with loose stool, and denies any other GI issues. Police Patrol Officer Required: No Accompanied by: Self / Same As Patient Allergies No Known Allergies Allergy (Verified 11/17/24 15:35) HPI HPI Colonoscopy Screening: Details: 54 year old? male with past medical history of RLS, dyslipidemia, sleep apnea, obesity, anxiety, hypertension is here today for pre colonoscopy screening.? Patient was sent to us by his PCP.? This is his first colonoscopy screening.? Patient denies any gastrointestinal symptoms in the past or at present.? Denies any personal or family history of gastrointestinal disease, colon polyps, or CRC.? Denies history of difficulty with sedation or anesthesia in the past.? History of sleep apnea. ? Denies any history of cardiac, renal, pulmonary, or hepatic disease.?? No history of infectious diseases like hepatitis A, B, C, HIV or tuberculosis.? Patient is not on any anticoagulation [facility] Medical History Depression High blood pressure Surgical History History of umbilical hernia repair History of tonsillectomy History of uvulectomy Family History Brother Alcohol abuse Diabetes Colorectal cancer FH: mental illness Mother FH: mental illness High blood pressure High cholesterol Cardiovascular disease Alcohol abuse Father High cholesterol Cardiovascular disease Alcohol abuse Maternal Grandmother Cardiovascular disease Paternal Aunt No problems noted. 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 Current occupational exposures/hazards: No Cognitive needs: No Hearing needs: No Vision needs: Yes Review of Systems Const Denies weight gain and Denies weight loss ENT Reports no additional complaints, Denies dysphagia and Denies odynophagia Card Reports no additional complaints Resp Reports no additional complaints GI Denies abdominal pain, Denies belching, Denies melena, Denies bloating, Denies change in bowel habits, Denies dysphagia, Denies excessive flatus, Denies dyspepsia, Denies heartburn, Denies diarrhea, Denies loose stools, Denies nausea, Denies odynophagia and Denies vomiting Reports no additional complaints Musc Reports no additional complaints Neuro Reports no additional complaints Psych Reports no additional complaints Endo Reports no additional complaints Physical Exam Vital Signs: Last Vital Signs Pulse 61 11/17/24 15:36 BP 107/61 11/17/24 15:36 Pulse Ox 95 11/17/24 15:36 Oxygen Delivery Method Room Air 11/17/24 15:36 BMI result Body Mass Index 34.9 Const General: healthy appearing, no acute distress and well developed Nutritional Appearance: well nourished and obese Orientation/consciousness: patient oriented x3 Resp Effort & Inspection: normal respiratory effort, able to speak in complete sentences, no tracheal deviation and symmetric chest movement Auscultation: clear to auscultation bilaterally Cardio Rate: regular rate GI Inspection: Yes normal to inspection, No distended and Yes obesity Palpation (GI): Soft to palpation, not firm, nontender and No hepatosplenomegaly present Auscultation: normal bowel sounds General: Yes no CVA tenderness Back/Spine/Pelvis Back: no CVA tenderness Skin General skin exam: elasticity normal, turgor normal and dry skin Neuro General: patient oriented x3 Psych Appearance: grossly normal Mental Status: mental status grossly normal Assessment & Plan Assessment & Plan (1) Colon cancer screening: Code(s): Z12.11 - Encounter for screening for malignant neoplasm of colon Category: Medical Plan Patient denies any GI, cardiac or respiratory symptoms.? Denies any issues with anesthesia in the past.? History of sleep apnea? No history infectious diseases in the past or present.? Not on any anticoagulation therapy.? No family or personal history of colon cancer or polyps.? Patient denies melena, hematochezia, unintentional weight loss or ribbon like stools.? Discussed at length the pre-procedure,? prep, diet & medications as well as what to expect prior, during and after the procedure.?? Stressed the importance of good bowel prep.? Recommended the use of Vaseline or Calmoseptine OTC & baby wipes with bowel movements to promote comfort.? ?Patient verbalizes understanding and agrees to plan of care.? He was given the opportunity to ask questions and all questions answered.? We will see him after the procedure.? Medications: New bisacodyl (Dulcolax (bisacodyl)) Start taking 2 tablet every night 7 days before the procedure and 1 day before procedure take 4 tablets at noon time followed by MiraLax prep 10 mg (2 x 5 mg) PO BEDTIME 16 tabs 0RF Z12.11 - Encounter for screening for malignant neoplasm of colon polyethylene glycol 3350 (Miralax) As directed by gastroenterology department at [facility] 238 grams PO ONCE 238 grams 0RF Z12.11 - Encounter for screening for malignant neoplasm of colon Coding Level of Care Code New Pt Level 3 (40988) Diagnoses Colon cancer screening Z12.11 Time Spent (min) 40 Comment 30 minutes spent with patient and additional 10 minutes spent reviewing his records
[2024-11-17 15:36] VITALS: BP 107/61; PULSE 61; O2SAT 95; BMI 34.9
== END 2024-11-17 16:18 | disposition home or self-care (01) ==
LOC: HO.HGI 15:34
PROVIDERS: PCP Nurse Practitioner Family; Visit Provider Nurse Practitioner Family
DX: Z01.818 Encounter for other preprocedural examination (principal); Z12.11 Encounter for screening for malignant neoplasm of colon
CPT/HCPCS: 99203

== ENCOUNTER 2024-11-24 13:15 | Emergency (ER) | payer OTHER, SELFPAY ==
--- NOTE | 2024-11-24 | ECG_ITS ---
Test Reason : repeat ekg Blood Pressure : */* mmHG Vent. Rate : 89 BPM Atrial Rate : 89 BPM P-R Int : 170 ms QRS Dur : 112 ms QT Int : 384 ms P-R-T Axes : 31 -20 15 degrees QTcB Int : 467 ms Normal sinus rhythm Incomplete right bundle branch block Minimal voltage criteria for LVH, may be normal variant ( R in aVL ) Septal infarct , age undetermined Abnormal ECG When compared with ECG of 24-Nov-2024 14:24, Septal infarct is now Present Referred By: Sara Garcia Electronically Signed By: Vasquez Mahan
--- NOTE | ~2024-11-24 | CT_ITS ---
EXAMINATION: CT HEAD WITHOUT CONTRAST CLINICAL INFORMATION: Seizure,? First time. COMPARISON: None available. TECHNIQUE: Contiguous axial imaging was performed from the skull base to vertex without intravenous administration of contrast. This CT examination was performed using dose optimization techniques as appropriate, variously including the following: *Automated exposure control *Adjustment of mA and/or kV according to patient size (this includes techniques or standardized protocols for targeted exams where dose is matched to indication/reason for exam; i.e. extremities or head) *Use of iterative reconstruction technique FINDINGS: There is no evidence of intracranial hemorrhage or extra-axial fluid collection. There is no mass effect, or edema. No CT evidence of acute territorial infarct. Ventricles, sulci, and cisterns are normal in size and configuration for patient age. No hydrocephalus. No midline shift. Negative hyperdense MCA sign. Negative insular ribbon sign. No significant white matter abnormalities. Normal pituitary. Globes and orbital contents image normally. No extracranial soft tissue abnormalities. The paranasal sinuses, mastoid air cells, and tympanic cavities are normally aerated. No suspicious bony abnormalities. There are no acute fractures evident. CT/CT head/brain wo IV con IMPRESSION: No acute intracranial abnormality. Electronically signed by: Suman Chung MD 11/24/2024 02:22 PM EDT
[2024-11-24 13:20] VITALS: BP 155/97; PULSE 84; RESP 18; TEMP 36.8; O2SAT 95; BMI 34.9
--- NOTE | 2024-11-24 13:20 | ED_ITS ---
HPI - Seizure General Chief Complaint: General Medical Stated Complaint: had a seizure yesterday and wants to get checked Time Seen by Provider: 11/24/24 14:06 Source: patient, family and old records reviewed Mode of arrival: ambulatory Limitations: no limitations History of Present Illness ED Provider: JUANA FISH Narrative: 54 yo male with PMH of HLD, restless leg syndrome, depresison, HTN, sleep apnea uses CPAP who reports not taking his medications for 3 days then doing [employer] for recreation on Sunday afternoon. Sunday morning he was on the couch and started to feel weird his was there he had LOC with full body shaking and eyes rolling back he was confused for 1 to 2 min. He has no hx of seizures, he does not drink ETOH. His brother has epilepsy. He notes no recent falls or head trauma. He reports this has never happened before. He had no incontience or tongue biting. He has no headaches. He states he feels better now. He only notes of recent in the last several weeks his resting HR is in the 40s which is unusual. He is not on BB or CCB. He does not normally do mushrooms this is only his 2nd time. MD complaint: possible seizure Onset (ago): day(s) (Sunday) Description of Episode: loss of consciousness and tonic-clonic movement Duration of episode: 5 -: second(s) Witnessed: Yes - by Bystander Trauma: No Seizure History: No Place: Home Possible Precipitating Event: drug use and medication Associated symptoms: other (low resting HR) Treatments prior to arrival: none Related Data Home Medications ?Medication ?Instructions ?Recorded ?Confirmed trazodone 100 mg tablet mg PO BEDTIME 06/26/2407/25 escitalopram oxalate 10 mg tablet 20 mg PO DAILY 10/31 Previous Rx's ?Medication ?Instructions ?Recorded indomethacin 50 mg capsule 50 mg PO TID 7 days #21 cap s 07/25/24 chlorthalidone 25 mg tablet 25 mg PO QAM 30 days #30 t abs 09/09/24 mecobalamin (vitamin B12) 1,000 1,000 mcg sublingual B EDTIME 10/31/24 mcg disintegrating restless legs #30 tabs tablet,sublingual bisacodyl 5 mg tablet,delayed 10 mg (2 x 5 mg) PO BEDT FÁTIMA #16 11/17/24 release (Dulcolax (bisacodyl)) tabs polyethylene glycol 3350 17 238 g PO ONCE #238 grams 0 11/17/24 gram/dose oral powder (Miralax) potassium chloride 10 mEq 10 meq PO DAILY #7 caps 11/05 05/31 capsule,extended release Allergies Allergy/AdvReac Type Severity Reaction Status Date / Time No Known Allergies Allergy Verified 11/24/24 13:21 Review of Systems 2 Review of Systems: Constitutional : No Fever, No Chills, No Fatigue ENT/Mouth : No sore throat, No Rhinorrhea Eyes: No Eye Pain, No Swelling, No Redness Cardiovascular : No Chest Pain, No SOB, No Dyspnea on Exertion Respiratory : No Cough, No Sputum Gastrointestinal : No Nausea, No Vomiting, No Diarrhea, No abdominal Pain Genitourinary : No Dysuria, No Urinary Frequency, No Hematuria, Musculoskeletal : No joint pain, No Myalgias, No Joint Swelling Skin : No Skin Lesions, No rash Neuro : No Weakness, No Numbness, No Dizziness, no Headache All other systems reviewed and are negative [facility] Past Medical History Attestation statement: The following information was validated with the patient. Source: old records reviewed Medical History Depression High blood pressure Surgical History History of umbilical hernia repair History of tonsillectomy History of uvulectomy Family History Family History Brother Alcohol abuse Diabetes Colorectal cancer FH: mental illness Mother FH: mental illness High blood pressure High cholesterol Cardiovascular disease Alcohol abuse Father High cholesterol Cardiovascular disease Alcohol abuse Maternal Grandmother Cardiovascular disease Paternal Aunt No problems noted. 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 Oriented X3. No acute distress. Eyes: Pupils equal, round and reactive to light. ENT: Pharynx normal. Neck: Normal inspection. Neck supple. CVS: Normal heart rate and rhythm. Pulses normal. Respiratory: No respiratory distress. Breath sounds normal. Abdomen: Soft and nontender. Skin: Skin warm and dry. Normal skin color. Normal skin turgor. Extremities: No lower extremity edema. No calf ttp Neuro: Oriented X 3. No motor deficit. No sensory deficit. CN2-12 intact NIH Stroke Scale Internal: Initial- Upon Arrival Level of Consciousness: Alert Level of Consciousness Questions: Answers both questions correctly Level of Consciousness Commands: Performs both tasks correctly Best Gaze: Normal Visual: No visual loss Facial Palsy: Normal Motor Arm (Right): No drift Motor Arm (Left): No drift Motor Leg (Right): No drift Motor Leg (Left): No drift Limb Ataxia: Absent Sensory: Normal Best Language: No aphasia Dysarthia: Normal Extinction and Inattention: No abnormality Score: 0 Course Course Course Narrative: This is an RME performed by Lennox Ramirez CNP: Additional HPI, ROS, PE not included below will be deferred to primary provider. I believe I had a seizure yesterday morning 11:30 was sitting on the cough I felt weird, and next thing you know i dont remember anything else . My arms and legs were flopping and eyes rolled into the back of my head , per his girlfriend. lasted 15 seconds. No incontinence. Awoke and felt perfectly fine. Used mushrooms the night prior. States had not taken his trazodone and lexapro for a few days. Concerned for seizure as his brother has a history of epilepsy. Today has felt entirely normal, but thought he should have things checked out. no focal neurological deficits. amb with steady gait. Plan: serum labs, U/A, HUITRON, head CT Medications Administered Discontinued Medications Generic Name Dose Route Start Last Admin Trade Name Chris PRN Reason Stop Dose Admin Magnesium Sulfate 2 gm in 50 mls @ 25 mls/hr 11/24/24 15:00 11/24/24 17:51 Magnesium Sulfate/H2o IV 11/24/24 16:59 Infused ONCE ONE Infusion Potassium Chloride 40 meq 11/24/24 15:00 11/24/24 15:26 Potassium Chloride Er 20 Meq Tab.Er.Prt PO 11/24/24 15:01 40 meq ONCE ONE Administration Medical Decision Making Medical Decision Making [facility] Narrative: 54 yo male with PMH of HLD, restless leg syndrome, depresison, HTN, sleep apnea uses CPAP now here with c/o having what sounds like a seizure after not taking his medications for 3 days then taking shrooms. For this he will need labs, EKG, CT head for mass. I would not start AED given there are 2 precipitating events he will need to talk to PCP. He has new watch - which has been telling him his baseline HR while sleeping is in 40s. At this time could be arryhtmia though he had a prodrome and no alert when episode happened he is not on BB or CCB he will need at minimum a holter monitor. Differential Diagnosis Differential Diagnoses: The differential diagnosis associated with the presentation includes seizure, lyte abnormality will keep on tele given reported low HRs at home Admission/Observation Consideration of admission/observation: Escalation of care including admission/observation considered at baseline, doing well post IV lytes EKG reviewed by cardiology Consult Healthcare Provider Dr. Mahan EKG changes likely due to lytes Lab Data [facility] Lab Attestation statement: I reviewed the patient's lab results. 11/24/24 14:33 11/24/24 14:33 Labs: Lab Results 11/24/24 11/24/24 Range/Units 14:33 16:17 WBC 10.2 (4.8-10.8) X10*3/uL RBC 5.35 (4.60-5.80) X10*6/uL Hgb 17.5 (14.0-18.0) g/dl Hct 48.6 (42.0-52.0) % MCV 90.8 (80.0-98.0) fL MCH 32.7 (27.0-33.0) pg MCHC 36.0 (31.0-36.0) g/dl RDW 11.9 (11.0-16.0) % Plt Count 196 (160-400) X10*3/uL MPV 9.7 (9.4-12.4) fL Immature Gran % (Auto) 0.5 H (0.0-0.4) % Neut % (Auto) 79.2 H (45-73) % Lymph % (Auto) 12.6 L (20-40) % [place] % (Auto) 7.1 (2-11) % Eos % (Auto) 0.1 (0-4) % Baso % (Auto) 0.5 (0-2) % Lymph # (Auto) 1.3 (1.2-4.9) X10*3/uL [place] # (Auto) 0.7 (0.1-1.2) X10*3/uL Eos # (Auto) 0.0 (0.0-0.4) X10*3/uL Baso # (Auto) 0.1 (0.0-0.2) X10*3/uL Abs Immat Gran (auto) 0.05 H (0.00-0.03) X10*3/uL Absolute Neuts (auto) 8.1 (2.0-8.3) x10*3/uL Absolute Nucleated RBC 0.000 (0.0-0.012) X10*3/uL Nucleated RBC % (auto) 0.0 (0.0-0.2) /100WBC Sodium 141 (135-145) mmol/L Potassium 3.2 L (3.3-5.1) mmol/L Chloride 105 (96-108) mmol/L Carbon Dioxide 27 (22-29) mmol/L Anion Gap 12 (12-20) BUN 16 (9-16) mg/dL Creatinine 0.79 (0.5-1.4) mg/dL Estim Creat Clear Calc 129.7 Estimated GFR > 60 Random Glucose 142 H (60-115) mg/dL Calcium 9.2 (8.4-10.2) mg/dL Magnesium 2.2 (1.6-2.6) mg/dL Total Bilirubin 0.9 (0.0-1.0) mg/dL AST 23 (5-37) U/L ALT 26 (0-40) U/L Alkaline Phosphatase 69 (39-117) U/L Total Protein 7.9 (6.5-8.0) g/dL Albumin 4.7 (3.5-5.0) g/dL Urine Color Yellow Urine Appearance Clear Urine pH 7.0 (5.0-9.0) Ur Specific [place] 1.010 (1.005-1.025) Urine Protein Negative (Neg-Trace) mg/dL Urine Glucose (UA) Negative (Negative) mg/dL Urine Ketones Negative (Negative) mg/dL Urine Blood Negative (Negative) Urine Nitrite Negative (Negative) Ur Leukocyte Esterase Negative (Negative) Urine Opiates Screen Not Detected (Not Detect) Ur Buprenorphine Scrn Not Detected (Not Detect) ng/mL Ur Oxycodone Screen Not Detected (Not Detect) ng/mL Urine Methadone Screen Not Detected (Not Detect) ng/mL Urine Fentanyl Screen Not Detected (Not Detect) Ur Barbiturates Screen Not Detected (Not Detect) Ur Phencyclidine Scrn Not Detected (Not Detect) Ur Amphetamines Screen Not Detected (Not Detect) U Benzodiazepines Scrn Not Detected (Not Detect) Urine Cocaine Screen Not Detected (Not Detect) U Marijuana (THC) Screen POSITIVE H (Not Detect) Ethyl Alcohol < 10 mg/dL Independent Interpretation I performed an independent interpretation of an: EKG and CT Scan (normal ) Interpretation: Rate: 94 Rhythm: NSR [place]: left, LVH Normal P waves. Normal PADMAJA. Normal QRS complex. ST T wave : inverted t waves ant leads, no DORA qTC: 480 prior studies: no prior The study has been interpreted contemporaneously by me. . EKG #2 posterior wall Rate: 89 Rhythm: NSR [place]: left Normal P waves. Normal PADMAJA. Normal QRS complex. ST T wave : no DORA in V7, V8, V9 qTC: 467 prior studies: no posterior ST elevation The study has been interpreted contemporaneously by me. EKG #3 Rate: 78 Rhythm: NSR [place]: left Normal P waves. Normal PADMAJA. widened QRS complex. ST T wave : nonspecific ST T wave changes but no DORA qTC: 501 prior studies: improved after treatments. The study has been interpreted contemporaneously by me. . Radiology Impression Discussion of test interpretation with radiology: I have reviewed the radiologist's reading. External Record Review External record reviewed: Outpatient record Prescription Management I considered prescription management with: Other Discharge Plan Discharge Clinical Impression: Seizure-like activity, Acute hypokalemia Patient Disposition: Home, Self-Care Instructions: Hypokalemia (ED), New-Onset Seizure in Adults (ED) Additional Instructions: repeat labs reassuring EKG on repeat checks normal CT head normal avoid mushrooms, no cooking over open flame, no swimming alone. would avoid driving until you have EEG and see your doctor you need to see your primary care doctor they need to obtain outpatient holter monitor and EEG return for any worsening symptoms or concerns. REPEAT EKG BY SUNDAY WITH YOUR DOCTOR WELL Prescriptions: New potassium chloride 10 mEq capsule, extended release 10 meq PO DAILY Qty: 7 0RF No Action chlorthalidone 25 mg tablet 25 mg PO QAM 30 Days Qty: 30 3RF bisacodyl [Dulcolax (bisacodyl)] 5 mg tablet,delayed release (DR/EC) 10 mg PO BEDTIME Qty: 16 0RF Rx Instructions: Start taking 2 tablet every night 7 days before the procedure and 1 day before procedure take 4 tablets at noon time followed by MiraLax prep polyethylene glycol 3350 [Miralax] 17 gram/dose powder 238 g PO ONCE Qty: 238 0RF Rx Instructions: As directed by gastroenterology department at [facility] indomethacin 50 mg capsule 50 mg PO TID 7 Days Qty: 21 0RF Rx Instructions: administer with food or milk trazodone 100 mg tablet PO BEDTIME escitalopram oxalate 10 mg tablet 20 mg PO DAILY mecobalamin (vitamin B12) 1,000 mcg tablet,disintegrating 1,000 mcg sublingual BEDTIME MDD 1000mcg Qty: 30 0RF Rx Instructions: place tablet under tongue and allow to dissolve for at least30 secs before swallowing Print Language: Tamazight
--- NOTE | 2024-11-24 14:16 | ECG_ITS ---
Test Reason : seizure Blood Pressure : */* mmHG Vent. Rate : 94 BPM Atrial Rate : 94 BPM P-R Int : 172 ms QRS Dur : 116 ms QT Int : 384 ms P-R-T Axes : 22 -30 3 degrees QTcB Int : 480 ms Normal sinus rhythm Left axis deviation Pulmonary disease pattern Left ventricular hypertrophy with QRS widening ( R in aVL , [place] product ) Prolonged QT Abnormal ECG No previous ECGs available Referred By: Sara Garcia Electronically Signed By: Vasquez Mahan
[2024-11-24 14:34] VITALS: BP 127/68; PULSE 85; RESP 16; TEMP 37.2; O2SAT 95
[2024-11-24 14:41] LABS: MANUAL DIFF FLAG NO
[2024-11-24 14:43] LABS: Hematocrit 48.6 % (42.0-52.0); Hemoglobin 17.5 g/dl (14.0-18.0); Imm Gran Abs Auto 0.05 X10*3/uL (0.00-0.03); Imm Gran Pct Auto 0.5 % (0.0-0.4); Lymphocytes Absolute Auto 1.3 X10*3/uL (1.2-4.9); Mean Corpuscular HGB Conc 36.0 g/dl (31.0-36.0); Mean Corpuscular Hemoglobin 32.7 pg (27.0-33.0); Mean Corpuscular Volume 90.8 fL (80.0-98.0); NRBC Abs Auto 0.000 X10*3/uL (0.0-0.012); NRBC Pct Auto 0.0 /100WBC (0.0-0.2); Platelet Count 196 X10*3/uL (160-400); Red Blood Count 5.35 X10*6/uL (4.60-5.80); White Blood Count 10.2 X10*3/uL (4.8-10.8)
[2024-11-24 14:58] LABS: Alanine Aminotransferase 26 U/L (0-40); Albumin Level 4.7 g/dL (3.5-5.0); Alkaline Phosphatase 69 U/L (39-117); Anion Gap 12 (12-20); Aspartate Amino Transferase 23 U/L (5-37); Blood Urea Nitrogen 16 mg/dL (9-16); Calcium 9.2 mg/dL (8.4-10.2); Carbon Dioxide 27 mmol/L (22-29); Chloride 105 mmol/L (96-108); Creatinine Clr Calc Pharmacy 129.7; Estimated Glomerular Filt Rate > 60; Potassium 3.2 mmol/L (3.3-5.1); Sodium 141 mmol/L (135-145); Total Protein 7.9 g/dL (6.5-8.0)
--- OUTSIDE RECORDS SUMMARY | 2024-11-24 15:09 | XMS_ITS | Clinical Summary ---
Author Organization [facility] Address [address] [place] [id number] Phone Care Team Providers Care Band Sewer Name Role Phone Unavailable Primary Care Provider Unavailabl e Active Problems Problem Noted Date Diagnosed Date Seasonal allergies 09/22/1999 Overview (06/27/2014): SEASONAL ALLERGIES Social History Tobacco Use Types Packs/Day Years Used Date Smoking Tobacco: Never Assessed Sex and Gender Information Value Date Recorded Sex Assigned at Not on file Legal Sex Male 4:59 PM EST Gender Identity Not on file Sexual Orientation Not on file Plan of Treatment Not on file Medical Devices Not on file Additional Source Comments The information contained in this document represents components of the legal health record. It is not the complete legal health record.[facility]
[2024-11-24] MEDS: Potassium Chloride ER 20 MEQ TAB.ER.PRT 40 MEQ PO (15:26)
[2024-11-24] MEDS: Magnesium Sulfate/H2O 2 GM/50 ML PIGGYBACK IV (15:33)
[2024-11-24 16:18] VITALS: BP 129/64; PULSE 59; RESP 14; TEMP 37.1; O2SAT 96
[2024-11-24 16:30] LABS: Appearance Urine Clear; Glucose Urine UA Negative (Negative); PH 7.0 (5.0-9.0); Specific Gravity - Urine 1.010 (1.005-1.025)
--- NOTE | 2024-11-24 16:36 | ECG_ITS ---
Test Reason : Repeat after electrolytes Blood Pressure : */* mmHG Vent. Rate : 78 BPM Atrial Rate : 78 BPM P-R Int : 176 ms QRS Dur : 116 ms QT Int : 440 ms P-R-T Axes : 16 -30 -11 degrees QTcB Int : 501 ms Normal sinus rhythm Left axis deviation Left ventricular hypertrophy with QRS widening ( R in aVL , [place] product ) Prolonged QT Abnormal ECG When compared with ECG of 24-Nov-2024 14:53, Incomplete right bundle branch block is no longer Present Criteria for Septal infarct are no longer Present Referred By: Sara Garcia Electronically Signed By: Vasquez Mahan
[2024-11-24 16:39] LABS: Cannabinoid Screen Urine POSITIVE (Not Detect)
[2024-11-24 18:00] LABS: Magnesium 2.2 mg/dL (1.6-2.6)
[2024-11-24 18:35] VITALS: BP 129/64; PULSE 59; RESP 14; TEMP 37.1; O2SAT 96
== END 2024-11-24 18:35 | disposition home or self-care (01) ==
PROVIDERS: Nurse Practitioner Family; Emergency Provider Emergency Medicine; PCP Nurse Practitioner Family
DX: R56.9 Unspecified convulsions (principal); E87.6 Hypokalemia; R29.700 NIHSS score 0; I10 Essential (primary) hypertension; E78.5 Hyperlipidemia, unspecified; Z79.899 Other long term (current) drug therapy
CPT/HCPCS: 36415; 70450; 80053; 80307; 81003; 83735; 85025; 93005; 96365; 96366; 99285; J3475

== ENCOUNTER → 2024-11-24 13:28 | Outpatient (BNV) | payer OTHER, SELFPAY | PROVIDERS: Emergency Provider Emergency Medicine; PCP Nurse Practitioner Family; Visit Provider Radiology Diagnostic Radiology | DX: R42 Dizziness and giddiness (principal) | CPT/HCPCS: 70450 ==

== ENCOUNTER → 2024-11-24 14:16 | Outpatient (BNV) | payer OTHER, SELFPAY | PROVIDERS: Emergency Provider Emergency Medicine; PCP Nurse Practitioner Family; Visit Provider Internal Medicine Cardiovascular Disease | DX: I51.7 Cardiomegaly (principal) | CPT/HCPCS: 93010 ==

== ENCOUNTER 2025-02-16 09:54 | Outpatient (REF) | payer OTHER, SELFPAY ==
--- OUTSIDE RECORDS SUMMARY | 2025-02-16 10:02 | XMS_ITS | Encounter Summary ---
Author Organization [facility] Address [address] [place] [address] Phone Care Team Providers Care Power House Control Room Operator Name Role Phone Unavailable Primary Care Provider Unavailabl e Encounter Details Date Type Department Care Team (Late st Contact Info) Description 03/06/2017 Ancillary Orders [facility] - Diagnostic Radiology, [facility] [address] [place] [address] Ciro Conenr DPM [address] [facility] [address] [place] [address] Fracture Social History Tobacco Use Types Packs/Day Years Used Date Smoking Tobacco: Never Assessed Sex and Gender Information Value Date Recorded Sex Assigned at Not on file Legal Sex Male 4:59 PM EST Gender Identity Not on file Sexual Orientation Not on file documented as of this encounter Plan of Treatment Not on file documented as of this encounter Visit Diagnoses Diagnosis Fracture Closed fracture of unspecified bone documented in this encounter Additional Source Comments The information contained in this document represents components of the legal health record. It is not the complete legal health record.[facility]
--- OUTSIDE RECORDS SUMMARY | 2025-02-16 10:02 | XMS_ITS | Clinical Summary ---
Author Organization [facility] Address [address] [place] [id number] Phone Care Team Providers Care Condenser Tester Name Role Phone Unavailable Primary Care Provider [...] It is not the complete legal health record.[facility]
[2025-02-16 10:54] LABS: Cholesterol 174 mg/dL (<200); HDL Cholesterol 32 mg/dL (>40); Triglycerides 180 mg/dL (<150); Uric Acid 6.9 mg/dL (3.4-7.0)
== END 2025-02-16 09:55 | disposition home or self-care (01) ==
LOC: HO.LAB 09:54
PROVIDERS: PCP Nurse Practitioner Family; Visit Provider Nurse Practitioner Family
DX: E78.5 Hyperlipidemia, unspecified (principal); M10.9 Gout, unspecified
CPT/HCPCS: 36415; 80061; 84550

== ENCOUNTER 2025-02-17 13:24 | Outpatient (AMB) | payer OTHER, SELFPAY ==
--- NOTE | 2025-02-17 13:20 | MHC.PC.OV ---
Intake Visit Reasons: F/u impaired fasting glucose, hyperlipidemia Intake Note: patient here for follow up on impaired fasting glucose, hyperlipidema Mall Manager Required: No Allergies No Known Allergies Allergy (Verified 02/17/25 13:20) Tobacco use date assessed: 02/17/25 Dental Screening Dental Screen Date: 02/17/25 Did you have a dental visit in the last 12 months?: Yes Did you have a dental problem in the last 6 months where you did not have access to dental care?: No Was dental information given to patient?: Patient has dentist HPI HPI Comments History of Present Illness Details 54-year-old male presents for a telehealth visit for review of recent lab results. He admits to taking his medications as prescribed without adverse reactions. He cut down his drinking to 2 fingers of whisky onces weekly from 2 fingers of whisky 4-5 times weekly. He offers no complaints and denies acute symptoms at this time. [facility] Medical History Depression High blood pressure Surgical History History of umbilical hernia repair History of tonsillectomy History of uvulectomy Family History Brother Alcohol abuse Diabetes Colorectal cancer FH: mental illness Mother FH: mental illness High blood pressure High cholesterol Cardiovascular disease Alcohol abuse Father High cholesterol Cardiovascular disease Alcohol abuse Maternal Grandmother Cardiovascular disease Paternal Aunt No problems noted. 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 Current occupational exposures/hazards: No Cognitive needs: No Hearing needs: No Vision needs: Yes Questionnaire Thrive Questionnaire Date Thrive assessed: 06/26/24 I am a: Patient What is your living situation today?: I have a steady place to live Within the past 12 months, did the food you bought not last and you didn't have the money to get more?: Never true Within the past 12 months, did you worry whether your food would run out before you got money to buy more?: Never true Do you have trouble paying for medicines?: No Do you have trouble getting transportation to medical appointments?: No Do you have trouble paying your heating and electricity bill?: No Do you have trouble taking care of your child, family member or friend?: No Do you have trouble with day-to-day activities such as bathing, preparing meals, shopping, managing finances, etc.?: No Are you currently unemployed and looking for a job?: No Are you interested in more education?: Yes Please select the resources that you would like help with: None Currently or been in a relationship where the following occur: No concerns reported THRIVE Score: 0 KATERYNA-7 AMB Questionnaire KATERYNA-7 Date KATERYNA - 7 assessed: 06/26/24 Source: Developed by Drs. Maximiliano Rivera, Anne Omalley, Freddie Broussard and colleagues, with an educational jocelin from [employer]. Review of Systems Const Details: Denies chills, Denies fatigue, Denies fever(s), Denies headache(s) and Denies weakness Cardiac Denies chest pain, Denies claudication, Denies leg edema, Denies lightheadedness, Denies palpitations, Denies dyspnea, Denies dyspnea on exertion, Denies orthopnea and Denies other (Loss of consciousness) Resp Denies cough, Denies excessive phlegm production, Denies dyspnea, Denies dyspnea on exertion, Denies snoring and Denies wheezing Physical exam (Primary Care) Tobacco/Smoking Status: Tobacco use Status Tobacco use date assessed 02/17/25 02/17/25 13:23 Patient Tobacco Use Status Never used Tobacco 02/17/25 13:23 e-Cigarette/Vaping Use Never Used 02/17/25 13:23 Thrive Assessment: Date of Thrive Assessment Date Thrive assessed 06/26/24 02/17/25 13:23 Currently or been in a relationship where the following occur: No concerns reported Telehealth Telehealth Telehealth Platform: Telephone Location of provider rendering services: practice address Location of patient: address on file Patient Identification confirmed using: Name, : Yes Telehealth method: voice only Patient verbally consented to treatment: Yes Patient verbally consented to billing insurance company: Yes Patient informed of any privacy concerns related to visit: Yes Coding Level of Care Code Tele Est Pt Level 3 (36031) Diagnoses Dyslipidemia E78.5 Elevated fasting glucose R73.01 Time Spent (min) 15 Assessment & Plan Assessment & Plan (1) Dyslipidemia: Code(s): E78.5 - Hyperlipidemia, unspecified Category: Medical Plan: Recent triglycerides and LDL levels are elevated, 180 and 106 respectively, previous level were 331 and 90 respectively; HDL level is low, 37. He cut down on his alcohol intake. Advised to limit foods high in saturated fat and avoid foods high in trans fat. Routine exercise encouraged. Fast for 10-12 hours, may drink water, and fund lipid panel blood work a few days before next visit. Follow-up for telehealth visit in 2 months. Return sooner with symptoms or concerns. Verbalized understanding and agreed with the plan. (2) Elevated fasting glucose: Code(s): R73.01 - Impaired fasting glucose Category: Medical Plan: He did not perform fasting glucose for this visit as planned. Advised to perform fasting glucose. Will review results and make changes as needed. Verbalized understanding and agreed with the plan. Orders: Orders Lipid Panel 2 Months E78.5 - Hyperlipidemia, unspecified
--- OUTSIDE RECORDS SUMMARY | 2025-02-17 16:11 | XMS_ITS | Encounter Summary ---
Author Organization [facility] Address [address] [place] [address] Phone Care Team Providers Care Rod Straightener Name Role Phone Unavailable Primary Care Provider Unavailabl e Encounter Details Date Type Department Care Team (Late st Contact Info) Description 03/06/2017 Ancillary Orders [facility] Imaging - Diagnostic Radiology, [facility] [address] [place] [address] Ciro Conner DPM [address] [facility] [address] [place] [address] Fracture Social History Tobacco Use Types Packs/Day [...] It is not the complete legal health record.[facility]
--- OUTSIDE RECORDS SUMMARY | 2025-02-17 16:11 | XMS_ITS | Clinical Summary ---
Author Organization [facility] Address [address] [place] [phone] Phone Care Team Providers Care Enamel Shader Name Role Phone Unavailable Primary Care Provider [...] It is not the complete legal health record.[facility]
== END 2025-02-17 16:10 | disposition home or self-care (01) ==
LOC: HO.HMCFM 13:24
PROVIDERS: PCP Nurse Practitioner Family; Visit Provider Nurse Practitioner Family
DX: E78.5 Hyperlipidemia, unspecified (principal); R73.01 Impaired fasting glucose

== ENCOUNTER 2025-02-25 07:38 | Outpatient (REF) | payer OTHER, SELFPAY ==
--- OUTSIDE RECORDS SUMMARY | 2025-02-25 07:41 | XMS_ITS | Clinical Summary ---
Author Organization [facility] Address [address] [place] [phone] Phone Care Team Providers Care Sr Community Manager Name Role Phone Unavailable Primary Care Provider [...] It is not the complete legal health record.[facility]
--- OUTSIDE RECORDS SUMMARY | 2025-02-25 07:41 | XMS_ITS | Encounter Summary ---
Author Organization [facility] Address [address] [place] [address] Phone Care Team Providers Care Head Charger Name Role Phone Unavailable Primary Care Provider Unavailabl e Encounter Details Date Type Department Care Team (Late st Contact Info) Description 03/06/2017 Ancillary Orders [facility] Imaging - Diagnostic Radiology, [facility] [address] [place] [address] Ciro Conner DPM [address] [facility] [address] [place] [address] Fracture Social History Tobacco Use Types Packs/Day [...] is not the complete legal health record.[facility]
[2025-02-25 08:09] LABS: Cholesterol 195 mg/dL (<200); HDL Cholesterol 36 mg/dL (>40); Iron 219 mcg/dL (45-160); Percent Iron Saturation 81 % (15-50); Total Iron Binding Capacity 272 mcg/dL (228-428); Triglycerides 171 mg/dL (<150); Unsaturated Iron Binding 53 ug/dL
[2025-02-25 08:31] LABS: Ferritin 210 ng/mL (20-250)
[2025-02-25 08:45] LABS: Folate 11.1 ng/mL (> or = 4.0); Vitamin B12 843 pg/mL (200-900)
== END 2025-02-25 07:39 | disposition home or self-care (01) ==
LOC: HO.LAB 07:38
PROVIDERS: Physician Assistant Medical; PCP Nurse Practitioner Family; Visit Provider Nurse Practitioner Family
DX: R73.01 Impaired fasting glucose (principal); E78.5 Hyperlipidemia, unspecified; R53.83 Other fatigue; G47.9 Sleep disorder, unspecified; R68.89 Other general symptoms and signs; G47.30 Sleep apnea, unspecified; E66.01 Morbid (severe) obesity due to excess calories; Z68.41 Body mass index [BMI] 40.0-44.9, adult; G47.00 Insomnia, unspecified
CPT/HCPCS: 36415; 80061; 82607; 82728; 82746; 82947; 83036; 83090; 83540; 83921